=== PATIENT | male | born 1955 | race Caucasian/White ===

== ENCOUNTER → 2019-01-13 | Outpatient (CLI) | payer OTHER ==
[~2019-01-13] VITALS: Ht 177.8 cm; Wt 70.3 kg
[~2019-01-13] MED LIST: BUSPAR30 MG PO; CRESTOR20 MG PO; DIAZEPAM 10 MG10 M2 PO; FLEXERIL PO; FLUOXETINE HCL40 MG PO; IPRAT-ALBUT 0.5-3 ML INH; LEVAQUIN 750 M750 MG PO; NAPROSYN500 MG PO; OLANZAPINE20 MG PO; PLAVIX 75 MG TA75 M1 PO; PREDNISONE 20 M20 MG PO; SYMBICORT160 MCG/4. INH; VENTOLIN HFA 1818 GM INH
--- NOTE | 2019-01-14 17:06 | PATH ---
[facility] [place] [address] PATHOLOGY RPT PROCEDURE Name: NANETTE LOAIZA Room #: REG Audelia Deal.#: [id number] ������������������ Admission: 01/13/19 ������������������ Date of : 51 Discharge: Report #: [id number] Path Case #: [id number] [facility] Accession Number: [id number] . 01 Material submitted: . esophagus - ESOPHAGEAL BX R/O EOE . 01 Clinical history: . Difficulty swallowing, rule out EOE . 02 Diagnosis: Squamous mucosa, esophageal rule out EOE, endoscopic biopsy: - Moderate acute esophagitis with rare (1-2/HPF) intraepithelial eosinophils. - Negative for intestinal metaplasia or dysplasia. - Negative for active ulceration. (IUV/db; 01/14/2019) LBQ/01/14/2019 . 02 Electronically signed: . Sherrill Oleary MD, Pathologist NPI- [id number] . 01 Gross description: . Received in formalin labeled "Hadsall, Nanette, esophageal BX," are 4 segments of meyer soft tissue measuring 1.2 x 0.8 x 0.1 cm in aggregate dimensions and ranging from 0.4 to 0.6 cm in maximum dimension. The specimen is submitted entirely in cassette A1. (TSD; 01/13/2019) TOB/TOB . 02 Pathologist provided ICD-10: K20.9 . 02 CPT . 361433 Specimen Comment: A courtesy copy of this report has been sent to Specimen Comment: [phone]. Specimen Comment: Report sent to Performed at: [address], [place] [id number] MD Mack Cano MD Phone: [phone] Performed at: [address] [id number] MD Sherrill Oleary MD Phone: [phone]
== END | disposition home or self-care (01) ==
LOC: GI 07:30
DX: K20.9 Esophagitis, unspecified (principal); J43.9 Emphysema, unspecified; I25.10 Atherosclerotic heart disease of native coronary artery without angina pectoris; I25.2 Old myocardial infarction; E78.00 Pure hypercholesterolemia, unspecified; F32.9 Major depressive disorder, single episode, unspecified; F41.9 Anxiety disorder, unspecified; F17.210 Nicotine dependence, cigarettes, uncomplicated; Z95.5 Presence of coronary angioplasty implant and graft; Z98.890 Other specified postprocedural states; Z79.899 Other long term (current) drug therapy; Z86.73 Personal history of transient ischemic attack (TIA), and cerebral infarction without residual deficits; Z88.8 Allergy status to other drugs, medicaments and biological substances; Z86.010 Personal history of colon polyps; Z79.01 Long term (current) use of anticoagulants; Z88.6 Allergy status to analgesic agent
CPT/HCPCS: 62110; 62900